=== PATIENT | female | born 1975 | race Caucasian/White ===

== ENCOUNTER 2019-01-16 21:06 | Emergency (ER) | payer OTHER ==
--- NOTE | 2019-01-16 21:36 | Emergency Department Record ---
History of Present Illness - General Chief complaint: GI Bleed Stated complaint: BLOODY CLOTS IN STOOL/BRIGHT RED Time Seen by Provider: 01/16/19 21:20 Source: Patient Mode of Arrival: Ambulatory Limitations: No limitations - History of Present Illness Initial comments: pt started having diarrhea last night and then started passing blood clots enough to turn the water red and now has straight blood passing. she has never had anything like this before. she has no pain but occasional cramping. she has never had a colonoscopy. she is scheduled to go to [place] in 2 days complaint: Gross hematochezia Onset/Timin -: Days(s) Radiation: Other Quality: Cramping Consistency: Intermittent Improves with: None Worsens with: None Context: Foreign travel Associated Symptoms: Diarrhea Treatments Prior to Arrival: None - Related Data Allergies Allergy/AdvReac Type Severity Reaction Status Date / Time meloxicam [From Mobic] Allergy HIVES Verified 01/16/19 21:16 sulfamethoxazole Allergy HIVES Verified 01/16/19 21:16 [From Bactrim] trimethoprim [From Bactrim] Allergy HIVES Verified 01/16/19 21:16 Travel Screening - Travel/Exposure Within Last 30 Days Have you traveled within the last 30 days?: Yes Location Detail:: [facility], [place] and [place] - Travel/Exposure Within Last Year Have you traveled outside the [place] in the last year?: Yes Location Detail:: [facility], [place] - Additonal Travel Details Have you been exposed to anyone with a communicable illness?: No - Travel Symptoms Symptom Screening: Diarrhea Review of Systems Reviewed: No additional complaints except as noted below Constitutional: Reports: As per HPI. Denies: Chills, Fever, Malaise, Night sweats, Weakness, Weight change Eyes: Reports: As per HPI. Denies: Eye discharge, Eye pain, Photophobia, Vision change ENT: Reports: As per HPI. Denies: Congestion, Dental pain, Ear pain, Epistaxis, Hearing loss, Throat pain Respiratory: Reports: As per HPI. Denies: Cough, Dyspnea, Hemoptysis, Stridor, Wheezes Cardiovascular: Reports: As per HPI. Denies: Arrhythmia, Chest pain, Dyspnea on exertion, Edema, Murmurs, Orthopnea, Palpitations, Paroxysmal nocturnal dyspnea, Rheumatic Fever, Syncope Endocrine: Reports: As per HPI. Denies: Fatigue, Heat or cold intolerance, Polydipsia, Polyuria Gastrointestinal: Reports: As per HPI, Diarrhea, Hematochezia. Denies: Abdominal pain, Constipation, Hematemesis, Melena, Nausea, Vomiting Genitourinary: Reports: As per HPI. Denies: Abnormal menses, Discharge, Dyspareunia, Dysuria, Frequency, Hematuria, Incontinence, Retention, Urgency Musculoskeletal: Reports: As per HPI. Denies: Arthralgia, Back pain, Gout, Joint swelling, Myalgia, Neck pain Skin: Reports: As per HPI. Denies: Bruising, Change in color, Change in hair/nails, Lesions, Pruritus, Rash Neurological: Reports: As per HPI. Denies: Abnormal gait, Confusion, Headache, Numbness, Paresthesias, Seizure, Tingling, Tremors, Vertigo, Weakness Psychiatric: Reports: As per HPI. Denies: Anxiety, Auditory hallucinations, Depression, Homicidal thoughts, Suicidal thoughts, Visual hallucinations Hematological/Lymphatic: Reports: As per HPI. Denies: Anemia, Blood Clots, Easy bleeding, Easy bruising, Swollen glands Past Medical History - SOCIAL HISTORY Smoking Status: Never smoker Alcohol Use: Rare Drug Use: None - RESPIRATORY Hx Respiratory Disorders: No - CARDIOVASCULAR Hx Cardio Disorders: No - NEURO Hx Neuro Disorders: No - GI Hx GI Disorders: No - Hx Genitourinary Disorders: Yes Hx Kidney Stones: Yes - ENDOCRINE Hx Endocrine Disorders: No - MUSCULOSKELETAL Hx Musculoskeletal Disorders: No - PSYCH Hx Psych Problems: No - HEMATOLOGY/ONCOLOGY Hx Hematology/Oncology Disorders: No Family Medical History Any Significant Family History?: No Physical Exam - General General Appearance: Alert, Oriented x3, Cooperative, Mild distress - Head Head exam: Normal inspection - Eye Eye exam: Normal appearance, PERRL, EOMI Pupils: Normal accommodation - ENT ENT exam: Normal exam, Mucous membranes moist, Normal external ear exam, Normal orophraynx Ear exam: Normal external inspection. negative: External canal tenderness Nasal Exam: Normal inspection. negative: Discharge, Sinus tenderness Mouth exam: Normal external inspection, Tongue normal Teeth exam: Normal inspection. negative: Dental caries Throat exam: Normal inspection. negative: Tonsillar erythema, Tonsillar exudate - Neck Neck exam: Normal inspection, Full ROM. negative: Tenderness - Respiratory Respiratory exam: Normal lung sounds bilaterally. negative: Respiratory distress - Cardiovascular Cardiovascular Exam: Regular rate, Normal rhythm, Normal heart sounds - GI/Abdominal GI/Abdominal exam: Soft, Normal bowel sounds. negative: Tenderness - Rectal Rectal exam: Bloody stool (solid blood per rectum) - exam: Deferred - Extremities Extremities exam: Normal inspection, Full ROM, Normal capillary refill. negative: Tenderness - Back Back exam: Reports: Normal inspection, Full ROM. Denies: Muscle spasm, Rash noted, Tenderness - Neurological Neurological exam: Alert, CN II-XII intact, Normal gait, Oriented X3 - Psychiatric Psychiatric exam: Normal affect, Normal mood - Skin Skin exam: Dry, Intact, Normal color, Warm Course Vital Signs 01/16/19 21:14 Temperature 98.5 F Pulse Rate [ 81 Pulse Ox Probe] Respiratory 20 Rate Blood Pressure 133/98 [Left Arm] Pulse Ox 97 - Reevaluation(s) Reevaluation #1: 01/16/19 23:27 ct shows mass on kidney, fluid collection in pelvis, stones Reevaluation #2: 01/16/19 23:28 pt still actively bleeding Medical Decision Making - Lab Data Result diagrams: 01/16/19 22:17 01/16/19 22:17 Disposition Disposition: Transfer Clinical Impression: GI bleed Qualifiers: GI bleed type/associated pathology: unspecified gastrointestinal hemorrhage type Qualified Code(s): K92.2 - Gastrointestinal hemorrhage, unspecified Disposition: Acute Care Hospital Transfer Transfer To: [facility] Reason For Transfer: needs gi doctor Accepting Physician: dr lima Time Discussed w/Accepting Physician: 00:00 Forms: Patient Portal Access Quality - Quality Measures Quality Measures: N/A - Blood Pressure Screening Does Patient Have Any of the Following: No Blood Pressure Classification: Pre-Hypertensive BP Reading Systolic Measurement: 123 Diastolic Measurement: 81 Screening for High Blood Pressure: < Pre-Hypertensive BP, F/U Documented > [G8950] Pre-Hypertensive Follow-up Interventions: Follow-up with rescreen every year.
[2019-01-16] MEDS ORDERED: 0.9 % SODIUM CHLORIDE 1,000 ML BAG IV ONE (21:47)
[2019-01-16 22:20] LABS: BASO % 0.4 % (0-6); EOS % 1.6 % (0-6); HEMATOCRIT 38.3 % (35.0-47.0); HEMOGLOBIN 13.2 gm/dl (11.6-16.0); LYMPH % 37.4 % (16-45); MEAN CELL VOLUME 91.4 fl (81-97); MEAN CORPUSCULAR HEMOGLOBIN 31.5 pg (27-33); MEAN CORPUSCULAR HGB CONC 34.5 g/dl (32-36); MEAN PLATELET VOLUME 9.8 fl (7.4-10.4); MONO % 6.6 % (0-9); PLATELET COUNT 219 K/uL (130-400); RED BLOOD COUNT 4.19 M/uL (3.80-5.40); RED CELL DISTRIBUTION WIDTH 11.4 % (11.5-14.5)
[2019-01-16 22:34] LABS: BLOOD UREA NITROGEN 12 mg/dL (6-20); CREATININE 0.6 mg/dL (0.5-0.9); EST GLOMERULAR FILTRATION RATE > 60 mL/min; TOTAL PROTEIN 6.6 g/dL (6.6-8.7)
[2019-01-16 22:36] LABS: GLUCOSE,RANDOM 94 mg/dL (74-109)
[2019-01-16 22:39] LABS: ALB/GLOB RATIO 1.5 (1.1-1.8); ALKALINE PHOSPHATASE 70 U/L (35-104); ALT/SGPT 20 U/L (<33); AST/SGOT 17 U/L (10.0-35.0)
--- NOTE | 2019-01-18 07:49 | CT SCAN REPORT ---
EXAM: CT SCAN OF THE ABDOMEN AND PELVIS HISTORY: PATIENT HAS DIARRHEA WITH BLOOD IN STOOL. TECHNIQUE: Serial axial CT scan of the abdomen and pelvis was performed at 3.75 mm intervals from the dome of the diaphragm down to the pubic symphysis without the use of intravenous or oral contrast. Comparison: CT scan of the abdomen and pelvis dated 02/14/15 is provided. FINDINGS: The lung windows of the lung bases demonstrate no CT evidence of a focal infiltrate or pleural effusion. The visualized heart size and contour is within normal limits. The liver, spleen, pancreas, adrenal glands, and gallbladder are unremarkable. The bilateral kidneys demonstrated no CT evidence of hydronephrosis or hydroureter. Nonobstructive 1.5 mm calculus is noted within the inferior pole of the right kidney. There is nonobstructive 3.4 mm calculus within the mid pole of the left kidney. Within the anterior mid pole of the right kidney, there is a 2.3 cm fat containing lesion with fat stranding. This is identified having an exophytic appearance. This finding is unchanged with respect to the prior CT scan and likely represents an angiomyolipoma. The contour and caliber of the noncontrasted abdominal aorta is within normal limits. There is no CT evidence of retroperitoneal, pelvic or inguinal lymphadenopathy. The bowel gas pattern is nonspecific and nonobstructive. Numerous colonic diverticula are noted without CT evidence of diverticulitis. The appendix is clearly visualized and there is no CT evidence of appendicitis. There is no CT evidence of free intraperitoneal air. The urinary bladder is unremarkable. The uterus is not visualized. Fluid is noted within the posterior cul-de-sac. Several follicles are identified within both ovaries. This finding may be the result of hemorrhagic ovarian cyst. If there is further clinical concern then ultrasound examination of the pelvis can be obtained for further evaluation. Bone windows demonstrate no CT evidence of a fracture or dislocation of the visualized osseous structures. IMPRESSION: 1. FLUID IS IDENTIFIED WITHIN THE POSTERIOR CUL-DE-SAC WHICH MAY BE THE RESULT OF HEMORRHAGIC OVARIAN CYST. IF THERE IS FURTHER CLINICAL CONCERN THEN ULTRASOUND EXAMINATION OF THE PELVIS CAN BE OBTAINED FOR FURTHER EVALUATION. 2. FAT CONTAINING EXOPHYTIC MASS WITHIN THE ANTERIOR MID POLE OF THE RIGHT KIDNEY IS STABLE WITH RESPECT TO THE PRIOR CT SCAN AND LIKELY REPRESENTS AN ANGIOMYOLIPOMA. JOB NUMBER: [id number] [facility]
== END 2019-01-17 00:14 | disposition short-term general hospital (02) ==
LOC: ER 21:06
DX: K92.2 Gastrointestinal hemorrhage, unspecified (principal); N28.89 Other specified disorders of kidney and ureter
CPT/HCPCS: 74176; 80053; 85025; 99284; 99285

== ENCOUNTER 2019-04-05 09:50 | Emergency (ER) | payer OTHER ==
[2019-04-05] MEDS ORDERED: 0.9 % SODIUM CHLORIDE 1,000 ML BAG IV ONE ×3 (10:20→11:57)
[2019-04-05] MEDS ORDERED: ACETAMINOPHEN 1,000 MG/100 ML BTL IVPB ONE (10:20)
[2019-04-05] MEDS ORDERED: KETOROLAC 30 MG/ML VIAL IVP ONE (10:22)
[2019-04-05] MEDS ORDERED: ONDANSETRON HCL IV 4 MG/2 ML VIAL IVP ONE ×2 (10:22→13:50)
[2019-04-05 10:32] LABS: URINE APPEARANCE SL CLOUDY; URINE BILIRUBIN SMALL (NEGATIVE); URINE BLOOD MODERATE (NEGATIVE); URINE COLOR YELLOW; URINE GLUCOSE (UA) NEGATIVE (NEGATIVE); URINE LEUKOCYTE ESTERASE MODERATE (NEGATIVE); URINE NITRITE NEGATIVE (NEGATIVE)
[2019-04-05] MEDS ORDERED: HYDROMORPHONE HCL 2 MG/ML VIAL IVP ONE ×2 (10:39→11:40)
[2019-04-05 10:42] LABS: URINE KETONE 80 mg/dL (NEGATIVE)
[2019-04-05 10:43] LABS: ABSOLUTE NEUTROPHIL COUNT 10.54; HEMATOCRIT 41.4 % (35.0-47.0); HEMOGLOBIN 13.9 gm/dl (11.6-16.0); MEAN CELL VOLUME 91.8 fl (81-97); MEAN CORPUSCULAR HEMOGLOBIN 30.8 pg (27-33); MEAN CORPUSCULAR HGB CONC 33.6 g/dl (32-36); MEAN PLATELET VOLUME 10.2 fl (7.4-10.4); PLATELET COUNT 268 K/uL (130-400); RED BLOOD COUNT 4.51 M/uL (3.80-5.40); RED CELL DISTRIBUTION WIDTH 11.9 % (11.5-14.5); WHITE BLOOD COUNT W/O DIFF 12.5 K/uL (4.2-12.2)
[2019-04-05 10:44] LABS: BLOOD UREA NITROGEN 14 mg/dL (6-20); CREATININE 0.7 mg/dL (0.5-0.9); EST GLOMERULAR FILTRATION RATE > 60 mL/min
[2019-04-05 10:47] LABS: GLUCOSE,RANDOM 135 mg/dL (74-109)
--- NOTE | 2019-04-05 10:50 | Emergency Department Record ---
History of Present Illness - General Chief complaint: Flank Pain Stated complaint: RIGHT KIDNET STONE Time Seen by Provider: 04/05/19 10:09 Source: Patient Mode of Arrival: Ambulatory Limitations: No limitations - History of Present Illness Initial comments: The patient is here due to a 2-3 hour hx of sharp stabbing R flank and RLQ pain. She has had some nausea and vomiting with the pain. The patient has a hx of kidney stones in the past and this feels like another. She also has had a week of dysuria and felt that she may have a UTI coming on. MD Complaint: Other Onset/Timin -: Hour(s) Severity scale (1-10): 6 Consistency: Constant Improves with: None Worsens with: None Patient : No - Related Data Home Medications Medication Instructions Recorded Confirmed Last Taken Ketorolac Tromethamine 1 tab PO Q8H 04/05/19 04/05/19 04/05/19 Previous Rx's Medication Instructions Recorded Cephalexin [Keflex] 500 mg PO TID #21 cap 04/05/19 Ondansetron [Zofran Odt] 4 mg SL .Q4-6H PRN #12 tab.rapdis 04/05/19 Allergies Allergy/AdvReac Type Severity Reaction Status Date / Time meloxicam [From Mobic] Allergy HIVES Verified 01/16/19 21:16 sulfamethoxazole Allergy HIVES Verified 01/16/19 21:16 [From Bactrim] trimethoprim [From Bactrim] Allergy HIVES Verified 01/16/19 21:16 Travel Screening - Travel/Exposure Within Last 30 Days Have you traveled within the last 30 days?: Yes Location Detail:: [place] - Travel/Exposure Within Last Year Have you traveled outside the [place] in the last year?: Yes Location Detail:: [place]/ [place]. - Additonal Travel Details Have you been exposed to anyone with a communicable illness?: No - Travel Symptoms Symptom Screening: Vomiting Review of Systems Constitutional: Denies: Chills, Fever Eyes: Denies: Eye discharge ENT: Denies: Congestion Respiratory: Denies: Cough Cardiovascular: Denies: Arrhythmia Endocrine: Denies: Fatigue Gastrointestinal: Reports: Abdominal pain, Nausea, Vomiting. Denies: Diarrhea Genitourinary: Reports: Dysuria Musculoskeletal: Denies: Arthralgia Neurological: Denies: Abnormal gait Past Medical History - SOCIAL HISTORY Smoking Status: Never smoker Alcohol Use: Rare Drug Use: None - RESPIRATORY Hx Respiratory Disorders: No - CARDIOVASCULAR Hx Cardio Disorders: No - NEURO Hx Neuro Disorders: No - GI Hx GI Disorders: No - Hx Genitourinary Disorders: Yes Hx Kidney Stones: Yes - ENDOCRINE Hx Endocrine Disorders: No - MUSCULOSKELETAL Hx Musculoskeletal Disorders: No - PSYCH Hx Psych Problems: No - HEMATOLOGY/ONCOLOGY Hx Hematology/Oncology Disorders: No Family Medical History Any Significant Family History?: No Physical Exam - General General Appearance: Alert, Oriented x3, Cooperative, Mild distress - Head Head exam: Atraumatic, Normocephalic - Eye Eye exam: Normal appearance - ENT Throat exam: Normal inspection. negative: Tonsillar erythema, Tonsillar exudate - Neck Neck exam: Normal inspection, Full ROM. negative: Tenderness - Respiratory Respiratory exam: Normal lung sounds bilaterally. negative: Respiratory distress - Cardiovascular Cardiovascular Exam: Regular rate, Normal rhythm, Normal heart sounds - GI/Abdominal GI/Abdominal exam: Soft, Diminished bowel sounds, Tenderness (There is significant RLQ tenderness.). negative: Normal bowel sounds, Rebound, Rigid - Extremities Extremities exam: Normal inspection, Full ROM, Normal capillary refill. negative: Tenderness - Neurological Neurological exam: Alert. negative: Motor sensory deficit Course Vital Signs 04/05/19 09:52 Pulse Rate 69 Respiratory 20 Rate Blood Pressure 127/83 Pulse Ox 100 - Reevaluation(s) Reevaluation #1: The patient is doing better at this time but is still in pain. She denies any new symptoms. 04/05/19 11:00 Reevaluation #2: The pain is waxing and waning and the patient is quite nauseated. Due to the extent of the pain I do feel it is most appropriate to admit the patient here for a short stay for pain control and fluids. 04/05/19 12:15 Reevaluation #3: I did discuss the case with Dr. Valdivia and he did agree to accept the patient for a short stay admission. I also did discuss the case with Dr. Sheppard ([facility] [place] and he also agrees with the plan and can see the patient in consultation if needed. The patient's pain presently did resolve so I do think she may have passed the stone. We will monitor her here for the next hour and if her pain does not return we will discharge with close F/U. 11/04/19 13:00 Reevaluation #4: The patient is doing a lot better at this time. Her pain is still gone and she did urinate and did pass a stone. Due to the resolution of the pain I do feel she will be able to go home with an oral Abx for a UTI. 04/05/19 13:57 Medical Decision Making - Data Complexity MDM Data: Labs Ordered and/or Reviewed, X-Ray Ordered and/or Reviewed - Lab Data Result diagrams: 04/05/19 10:21 04/05/19 10:21 Lab Results 04/05/19 Range/Units 10:21 Urine Color Yellow Urine Appearance Sl cloudy Urine pH 6.0 (5.0-8.0) Ur Specific [place] 1.025 (1.002-1.030) Urine Protein 30 mg/dl H (NEGATIVE) Urine Glucose (UA) Negative (NEGATIVE) Urine Ketones 80 mg/dl H (NEGATIVE) Urine Blood Moderate (NEGATIVE) Urine Nitrite Negative (NEGATIVE) Urine Bilirubin Small H (NEGATIVE) Urine Urobilinogen 1.0 (0.20 - 1.00) E.U./dL Ur Leukocyte Esterase Moderate H (NEGATIVE) - Radiology Data Radiology results: Report reviewed (CT: 2-3 mm stone R UVJ with hydro.) Disposition Disposition: Discharge Clinical Impression: Ureteral calculus, right Disposition: Home, Self-Care Condition: (2) Stable Instructions: Urinary Tract Infection in Women (ED), Ureteral Stones (ED) Additional Instructions: Please drink plenty of fluids and use the Zofran for nausea. Please take the Keflex as directed and return to the ER for any fever, vomiting, or return of the pain. Prescriptions: Cephalexin [Keflex] 500 mg PO TID #21 cap Ondansetron [Zofran Odt] 4 mg SL .Q4-6H PRN #12 tab.rapdis PRN Reason: Nausea Forms: Patient Portal Access Time of Disposition: 14:23 Quality - Quality Measures Quality Measures: N/A - Blood Pressure Screening View Details: Yes Does Patient Have Any of the Following: No Blood Pressure Classification: Pre-Hypertensive BP Reading Systolic Measurement: 127 Diastolic Measurement: 83 Screening for High Blood Pressure: < Pre-Hypertensive BP, F/U Documented > [G8950] Pre-Hypertensive Follow-up Interventions: Referral to alternative/primary care provider.
[2019-04-05 10:59] LABS: URINE WBC 36 - 50 (0-2/hpf)
[2019-04-05 11:00] LABS: URINE BACTERIA 3+; URINE EPITHELIAL CELLS 21 - 35 (FEW)
[2019-04-05 11:23] LABS: PLATELET ESTIMATE NORMAL (NORMAL)
--- NOTE | 2019-04-05 11:23 | CT SCAN REPORT ---
EXAMINATION: CT Abdomen and Pelvis without IV Contrast EXAM DATE: 04/05/2019 11:08 AM TECHNIQUE: Standard protocol CT imaging of the abdomen and pelvis was performed without intravenous c ontrast. INDICATION: Right flank pain with history of stones. COMPARISON: CT images from 01/16/2019 FINDINGS: CT abdomen: Mild right hydronephrosis and hydroureter caused by a 2-3 mm stone at the ureterovesical junction, seen on series 2, axial images 167-170. No other urinary tract calculus. No left hydronephr osis or hydroureter. Duplicated collecting system redemonstrated on the left. Stable size and appearance of the mostly exophytic fatty lesion projecting anteriorly from the right kidney. Normal heart size. Very mild atelectasis in the lung bases. CT pelvis: Very small volume of free fluid in the dependent pelvis. No abnormal mass. Normal-appearin g appendix. Uncomplicated diverticulosis is seen throughout the colon. No focal bowel abnormality. A very small umbilical hernia contains only fat, stable. No acute bony abnormality. IMPRESSION: 1. Right hydronephrosis and hydroureter caused by a small 2-3 mm stone at the ureterovesical junction . 2. No other urinary tract calculus. 3. Normal-appearing appendix. 4. Very small volume of free fluid in the dependent pelvis. Dictated by: Gustavo Young MD on 04/05/2019 11:13 AM. .
[2019-04-05 11:40] LABS: URINE APPEARANCE CLEAR; URINE BILIRUBIN NEGATIVE (NEGATIVE); URINE BLOOD SMALL (NEGATIVE); URINE COLOR YELLOW; URINE GLUCOSE (UA) NEGATIVE (NEGATIVE); URINE KETONE 40 mg/dL (NEGATIVE); URINE LEUKOCYTE ESTERASE NEGATIVE (NEGATIVE); URINE NITRITE NEGATIVE (NEGATIVE); URINE PROTEIN NEGATIVE (NEGATIVE); URINE UROBILINOGEN 0.2 E.U./dL (0.20 - 1.00)
[2019-04-05 11:54] LABS: URINE BACTERIA FEW; URINE RBC 0 - 2 (NONE SEEN)
[2019-04-05] MEDS ORDERED: CEFTRIAXONE 1GM/50ML BAG 1 GM/50 ML BAG IVPB ONE (12:14)
[2019-04-05] MEDS ORDERED: TAMSULOSIN HCL 0.4 MG CAP.ER.24H PO ONE (12:30)
== END 2019-04-05 14:47 | disposition home or self-care (01) ==
LOC: ER 09:50
DX: N13.2 Hydronephrosis with renal and ureteral calculous obstruction (principal); R11.2 Nausea with vomiting, unspecified; Z87.442 Personal history of urinary calculi; R30.0 Dysuria
CPT/HCPCS: 74176; 80048; 81001; 85027; 96365; 96366; 96375; 96376; 99284; J0696; J1885; J2405; J7030

== ENCOUNTER 2019-04-08 13:50 | Observation (INO) | payer OTHER ==
[2019-04-08] MEDS ORDERED: 0.9 % SODIUM CHLORIDE 1,000 ML BAG IV ONE (14:05)
[2019-04-08] MEDS ORDERED: ACETAMINOPHEN 1,000 MG/100 ML BTL IVPB ONE (14:10)
--- NOTE | 2019-04-08 14:18 | Emergency Department Record ---
History of Present Illness - General Chief Complaint: Fever Stated Complaint: FEVER Time Seen by Provider: 04/08/19 14:01 Source: Patient Mode of Arrival: Ambulatory Limitations: No limitations - History of Present Illness Initial Comments: The patient is here due to not feeling well for 3 days. She was here in this ER 3 days ago due to the acute onset of R groin pain and did have a 2-3 mm ureter stone at the R UVJ along with a mild UTI. The stone did pass and she was discharged on Keflex after receiving a dose of Rocephin IV in the ED. Since she left she has been having intermittent fevers, weakness, chills, and vague mild R sided flank pain. The pain is nothing like her kidney stone pain. The patient's urine culture did grow out Proteus Mirabilis which is sensitive to Cephalosporins. MD Complaint: Fever, Malaise, Weakness Onset/Timin -: Days(s) Associated Symptoms: Denies other symptoms - Related Data Previous Rx's Medication Instructions Recorded Cephalexin [Keflex] 500 mg PO TID #21 cap 04/05/19 Ondansetron [Zofran Odt] 4 mg SL .Q4-6H PRN #12 tab.rapdis 04/05/19 Allergies Allergy/AdvReac Type Severity Reaction Status Date / Time meloxicam [From Mobic] Allergy HIVES Verified 04/08/19 13:55 sulfamethoxazole Allergy HIVES Verified 04/08/19 13:55 [From Bactrim] trimethoprim [From Bactrim] Allergy HIVES Verified 04/08/19 13:55 Travel Screening - Travel/Exposure Within Last 30 Days Have you traveled within the last 30 days?: No - Travel/Exposure Within Last Year Have you traveled outside the [place] in the last year?: No - Additonal Travel Details Have you been exposed to anyone with a communicable illness?: No - Travel Symptoms Symptom Screening: None Review of Systems Constitutional: Reports: Chills, Fever, Malaise Eyes: Denies: Eye discharge ENT: Denies: Congestion Respiratory: Denies: Cough Cardiovascular: Denies: Arrhythmia, Chest pain Endocrine: Reports: Fatigue Gastrointestinal: Reports: Abdominal pain. Denies: Diarrhea, Nausea, Vomiting Genitourinary: Reports: Dysuria Musculoskeletal: Denies: Arthralgia, Back pain Skin: Denies: Bruising Past Medical History - SOCIAL HISTORY Smoking Status: Never smoker Alcohol Use: Occasional Drug Use: None - RESPIRATORY Hx Respiratory Disorders: No - CARDIOVASCULAR Hx Cardio Disorders: No - NEURO Hx Neuro Disorders: No - GI Hx GI Disorders: No - Hx Genitourinary Disorders: Yes Hx Kidney Stones: Yes - ENDOCRINE Hx Endocrine Disorders: No - MUSCULOSKELETAL Hx Musculoskeletal Disorders: No - PSYCH Hx Psych Problems: No - HEMATOLOGY/ONCOLOGY Hx Hematology/Oncology Disorders: No Family Medical History Any Significant Family History?: No Physical Exam - General General Appearance: Alert, Oriented x3, Cooperative, No acute distress - Head Head exam: Atraumatic, Normocephalic, Normal inspection - Eye Eye exam: Normal appearance, PERRL - ENT Throat exam: Normal inspection. negative: Tonsillar erythema, Tonsillar exudate - Neck Neck exam: Normal inspection, Full ROM. negative: Tenderness - Respiratory Respiratory exam: Normal lung sounds bilaterally. negative: Respiratory distress - Cardiovascular Cardiovascular Exam: Regular rate, Normal rhythm, Normal heart sounds - GI/Abdominal GI/Abdominal exam: Soft, Normal bowel sounds. negative: Guarding, Organomegaly, Pulsatile mass, Rebound, Rigid, Tenderness - Extremities Extremities exam: Normal inspection, Full ROM, Normal capillary refill. negative: Tenderness - Back Back exam: Denies: CVA tenderness (R), CVA tenderness (L) - Neurological Neurological exam: Alert. negative: Motor sensory deficit - Psychiatric Psychiatric exam: negative: Anxious - Skin Skin exam: negative: Rash Course Vital Signs 04/08/19 13:56 Temperature 99.5 F Pulse Rate 100 H Respiratory 20 Rate Blood Pressure 123/84 Pulse Ox 98 - Reevaluation(s) Reevaluation #1: The patient is doing better and her temp is improved to 98.2 orally. I did discuss the findings with the patient and do recommend a short stay admission due to the recurrent fever, chills, and body aches with elevated blood levels of the CRP and Procalcitonin. I did discuss the case with Shalini ([employer]) and she does accept the admission for Dr. Valdivia. 04/08/19 15:50 Medical Decision Making - Data Complexity MDM Data: Labs Ordered and/or Reviewed, X-Ray Ordered and/or Reviewed - Lab Data Result diagrams: 04/08/19 14:10 04/08/19 14:10 - Radiology Data Radiology results: Report reviewed (Renal US: Neg for acute changes.) Disposition Disposition: Admit Clinical Impression: Pyelonephritis Disposition: Still a Patient at [facility] Decision to Admit: Admit from ER Decision to Admit Date: 04/08/19 Decision to Admit Time: 16:15 Accepting Physician: Skip Time Discussed w/Accepting Physician: 16:15 Condition: (2) Stable Forms: Patient Portal Access Time of Disposition: 16:15 Quality - Quality Measures Quality Measures: N/A - Blood Pressure Screening View Details: Yes Does Patient Have Any of the Following: No Blood Pressure Classification: Pre-Hypertensive BP Reading Systolic Measurement: 123 Diastolic Measurement: 84 Screening for High Blood Pressure: < Pre-Hypertensive BP, F/U Documented > [G8950] Pre-Hypertensive Follow-up Interventions: Referral to alternative/primary care provider.
[2019-04-08 14:30] LABS: ABSOLUTE NEUTROPHIL COUNT 5.53; BASO % 0.1 % (0-6); EOS % 0.9 % (0-6); GRAN % 72.5 % (47-80); HEMATOCRIT 39.5 % (35.0-47.0); LYMPH % 20.6 % (16-45); MEAN CELL VOLUME 92.1 fl (81-97); MEAN CORPUSCULAR HEMOGLOBIN 30.3 pg (27-33); MEAN CORPUSCULAR HGB CONC 32.9 g/dl (32-36); MONO % 5.9 % (0-9); PLATELET COUNT 160 K/uL (130-400); RED BLOOD COUNT 4.29 M/uL (3.80-5.40); URINE APPEARANCE CLEAR; URINE BILIRUBIN NEGATIVE (NEGATIVE); URINE BLOOD MODERATE (NEGATIVE); URINE COLOR YELLOW; URINE GLUCOSE (UA) NEGATIVE (NEGATIVE); URINE KETONE NEGATIVE (NEGATIVE); URINE LEUKOCYTE ESTERASE NEGATIVE (NEGATIVE); URINE NITRITE NEGATIVE (NEGATIVE); URINE PROTEIN NEGATIVE (NEGATIVE); URINE UROBILINOGEN 0.2 E.U./dL (0.20 - 1.00); WHITE BLOOD COUNT W/O DIFF 7.6 K/uL (4.2-12.2)
[2019-04-08 14:38] LABS: URINE BACTERIA NONE SEEN; URINE EPITHELIAL CELLS NONE SEEN (FEW); URINE WBC NONE SEEN (0-2/hpf)
[2019-04-08 15:01] LABS: BLOOD UREA NITROGEN 8 mg/dL (6-20); CREATININE 0.6 mg/dL (0.5-0.9); EST GLOMERULAR FILTRATION RATE > 60 mL/min
[2019-04-08 15:02] LABS: TOTAL PROTEIN 7.2 g/dL (6.6-8.7)
[2019-04-08 15:04] LABS: GLUCOSE,RANDOM 108 mg/dL (74-109)
[2019-04-08 15:06] LABS: ALT/SGPT 101 U/L (<33); AST/SGOT 57 U/L (10.0-35.0)
[2019-04-08 15:07] LABS: ALB/GLOB RATIO 1.2 (1.1-1.8); ALBUMIN 3.9 g/dL (4.0-5.0); ALKALINE PHOSPHATASE 247 U/L (35-104); C-REACTIVE PROTEIN 11.18 mg/dL (<0.5)
[2019-04-08] MEDS ORDERED: CIPROFLOXACIN LACTATE/D5W 400 MG/200 ML BAG IVPB ONE (15:13)
[2019-04-08] MEDS ORDERED: POTASSIUM CHLORIDE 20 MEQ TABLET PO ONE (15:14)
--- NOTE | 2019-04-08 15:33 | ULTRASOUND REPORT ---
EXAMINATION: Kidney and Bladder Ultrasound EXAM DATE: 04/08/2019 2:58 PM TECHNIQUE: Ultrasound of the kidneys and bladder. INDICATION: F flank pain with passed kidney stone 04/05. COMPARISON: December 2018 CT scan. FINDINGS: Right Kidney: The right kidney measures 12.4 x 5.9 x 5 cm(length x AP x width) in dimension. The ech ogenicity of the kidney is normal. No hydronephrosis is present. The right kidney contains a 1.6 cm maximum dimension uniformly hyperechoic mass, likely reflecting an angiomyolipoma. Left Kidney: The left kidney measures 12.6 x 4.9 x 6 cm(length x AP x width) in dimension. The echoge nicity of the kidney is normal. No hydronephrosis is present. No cysts or masses are present. Bladder: Normal. Bilateral ureteral jets identified. ADDITIONAL FINDINGS: None. IMPRESSION: 1. 1.6 cm likely angiomyolipoma within the right kidney. 2. Otherwise unremarkable renal ultrasound. No hydronephrosis. Dictated by: Van Lua MD on 04/08/2019 3:30 PM. .
[2019-04-08] MEDS ORDERED: 0.9 % SODIUM CHLORIDE 1000ML 1,000 ML IV ONE (16:56)
[2019-04-08] MEDS: CEFTRIAXONE 1GM/50ML BAG 1 GM/50 ML BAG IVPB SCH (17:07)
[2019-04-08] MEDS ORDERED: SUMATRIPTAN 6 MG/0.5 ML VIAL SQ PRN (17:15)
[2019-04-08] MEDS ORDERED: ONDANSETRON HCL IV 4 MG/2 ML VIAL IVP PRN (19:14)
[2019-04-08] MEDS: ACETAMINOPHEN 1,000 MG/100 ML BTL IVPB SCH (20:59)
[2019-04-08] MEDS: POTASSIUM CHLORIDE 20 MEQ TABLET PO SCH (21:19)
[2019-04-09] MEDS: ACETAMINOPHEN 1,000 MG/100 ML BTL IVPB SCH ×2 (02:16→07:39)
[2019-04-09] MEDS: CEFTRIAXONE 1GM/50ML BAG 1 GM/50 ML BAG IVPB SCH (05:44)
[2019-04-09 06:54] LABS: ABSOLUTE NEUTROPHIL COUNT 3.32; BASO % 0.3 % (0-6); EOS % 1.4 % (0-6); GRAN % 53.4 % (47-80); HEMATOCRIT 37.7 % (35.0-47.0); HEMOGLOBIN 12.2 gm/dl (11.6-16.0); LYMPH % 37.5 % (16-45); MEAN CELL VOLUME 92.4 fl (81-97); MEAN CORPUSCULAR HEMOGLOBIN 29.9 pg (27-33); MEAN CORPUSCULAR HGB CONC 32.4 g/dl (32-36); MEAN PLATELET VOLUME 10.1 fl (7.4-10.4); MONO % 7.4 % (0-9); PLATELET COUNT 163 K/uL (130-400); RED BLOOD COUNT 4.08 M/uL (3.80-5.40); WHITE BLOOD COUNT W/O DIFF 6.2 K/uL (4.2-12.2)
[2019-04-09 07:24] LABS: ALBUMIN 3.4 g/dL (4.0-5.0); ALKALINE PHOSPHATASE 229 U/L (35-104); ALT/SGPT 70 U/L (<33); AST/SGOT 35 U/L (10.0-35.0); BLOOD UREA NITROGEN 7 mg/dL (6-20); C-REACTIVE PROTEIN 6.02 mg/dL (<0.5); CREATININE 0.5 mg/dL (0.5-0.9); EST GLOMERULAR FILTRATION RATE > 60 mL/min; GLUCOSE,RANDOM 106 mg/dL (74-109); TOTAL PROTEIN 6.3 g/dL (6.6-8.7)
[2019-04-09] MEDS: MODAFINIL 100 MG PO SCH ×2 (07:24→10:30)
[2019-04-09 07:53] LABS: BILIRUBIN,DIRECT < 0.2 mg/dL (0-0.3)
--- NOTE | 2019-04-09 08:13 | History & Physical ---
History of Present Illness - Date of Service Date of Service for History & Physical: 04/09/19 - History of Present Illness Admitting Diagnosis: 1. Acute R Pyelonephritis. History of Present Illness: The patient is here due to not feeling well for 3 days. She was here in this ER 3 days ago due to the acute onset of R groin pain and did have a 2-3 mm ureter stone at the R UVJ along with a mild UTI. The stone did pass and she was discharged on Keflex after receiving a dose of Rocephin IV in the ED. Since she left she has been having intermittent fevers, weakness, chills, and vague mild R sided flank pain. The pain is nothing like her kidney stone pain. The patient's urine culture did grow out Proteus Mirabilis which is sensitive to Cephalosporins. Past medical history of occasional smoker, kidney stones. While in the ED Tmax 99.5. CBC unremarkable. Potassium 2.9. AST 57, ALT 101, Alk Phos 247. CRP 11.18, Procalcitonin 3.74. U/A unremarkable. Renal ultrasound negative. CT abdomen/pelvis reviewed fro 04/05/19- right hydronephrosis with 2- 3mm stone at ureterovesicular junction. Admitted for suspect subclinical pyelonephritis, IV antibiotics, antiemetics, IV hydration. 04/09/19 0930- Resting in bed comfortably, does report she is having a migraine that is of typical headache pattern. Is not wanting to take Imitrex at this time as it makes her drowsy and she needs to drive home. Otherwise has tolerated PO intake, no further nausea, no vomiting. Has remained afebrile. Right flank pain has significantly improved. Travel Screening - Travel/Exposure Within Last 30 Days Have you traveled within the last 30 days?: Yes Location Detail:: [facility] - Travel/Exposure Within Last Year Have you traveled outside the [place] in the last year?: Yes Location Detail:: [place], [place] - Additonal Travel Details Have you been exposed to anyone with a communicable illness?: No - Travel Symptoms Symptom Screening: None Review of Systems Constitutional: Reports: Chills, Fever, Malaise Eyes: Denies: Eye discharge ENT: Denies: Congestion Respiratory: Denies: Cough Cardiovascular: Denies: Arrhythmia, Chest pain Endocrine: Reports: Fatigue Gastrointestinal: Reports: Abdominal pain. Denies: Diarrhea, Nausea, Vomiting Genitourinary: Reports: Dysuria Musculoskeletal: Denies: Arthralgia, Back pain Skin: Denies: Bruising Past Medical History - SOCIAL HISTORY Smoking Status: Never smoker Alcohol Use: None Drug Use: None - RESPIRATORY Hx Respiratory Disorders: No - CARDIOVASCULAR Hx Cardio Disorders: No - NEURO Hx Neuro Disorders: No - GI Hx GI Disorders: No - Hx Genitourinary Disorders: Yes Hx Kidney Stones: Yes - ENDOCRINE Hx Endocrine Disorders: No - MUSCULOSKELETAL Hx Musculoskeletal Disorders: No - PSYCH Hx Psych Problems: No - HEMATOLOGY/ONCOLOGY Hx Hematology/Oncology Disorders: No Family Medical History Any Significant Family History?: No H&P Meds/Allergies - Allergies Allergies: Allergies Allergy/AdvReac Type Severity Reaction Status Date / Time meloxicam [From Mobic] Allergy HIVES Verified 04/08/19 13:55 sulfamethoxazole Allergy HIVES Verified 04/08/19 13:55 [From Bactrim] trimethoprim [From Bactrim] Allergy HIVES Verified 04/08/19 13:55 - Home Medications Previous Rx's Medication Instructions Recorded Ondansetron [Zofran Odt] 4 mg SL .Q4-6H PRN #12 tab.rapdis 04/05/19 Ciprofloxacin HCl [Cipro] 500 mg PO Q12HR 10 Days #20 tab 04/09/19 Potassium Chloride [Klor-Con] 20 meq PO BID 7 Days #14 tablet.sa 04/09/19 - Active Medications Active Medications: Current Medications CEFTRIAXONE 1GM/50ML BAG (Ceftriaxone 1 Gm-D5w Bag) 1 gm in 50 mls @ 100 mls/hr IVPB Q12H VICKY Last Infusion: 04/09/19 06:29 Dose: Infused Documented by: Acetaminophen (Ofirmev) 1,000 mg in 100 mls @ 400 mls/hr IVPB Q6H VICKY Last Admin: 04/09/19 07:39 Dose: 200 mls/hr Documented by: Ondansetron HCl (Zofran) 4 mg IVP Q6H PRN PRN Reason: NAUSEA Last Admin: 04/08/19 19:17 Dose: 4 mg Documented by: Patient Own Med: (Modafinil 100 Mg) 1 each PO DAILY VICKY Last Admin: 04/09/19 07:24 Dose: 1 each Documented by: Potassium Chloride (Klor-Con) 20 meq PO BID VICKY Last Admin: 04/08/19 21:19 Dose: 20 meq Documented by: Sumatriptan Succinate (Imitrex) 6 mg SQ Q1H PRN PRN Reason: FOR MIGRAINE Physical Exam - Vital Signs Vital Signs: Vital Signs - Last 24 Hrs Temp Pulse Pulse Pulse Resp BP BP 04/09/19 07:47 97.9 F 68 14 04/09/19 02:55 97.5 F L 66 16 113/61 04/08/19 18:56 98.8 F 81 16 127/80 04/08/19 16:56 99.4 F 88 16 139/55 04/08/19 16:37 98.2 F 78 18 111/77 04/08/19 13:56 99.5 F 100 H 20 123/84 BP Pulse Ox 04/09/19 07:47 121/77 100 04/09/19 02:55 99 04/08/19 18:56 100 04/08/19 16:56 99 04/08/19 16:37 100 04/08/19 13:56 98 - General General Appearance: Alert, Oriented x3, Cooperative, No acute distress Limitations: No limitations - Head Head exam: Atraumatic, Normocephalic, Normal inspection - Eye Eye exam: Normal appearance, PERRL - ENT Throat exam: Normal inspection. negative: Tonsillar erythema, Tonsillar exudate - Neck Neck exam: Normal inspection, Full ROM. negative: Tenderness - Respiratory Respiratory exam: Normal lung sounds bilaterally. negative: Respiratory distress - Cardiovascular Cardiovascular Exam: Regular rate, Normal rhythm, Normal heart sounds - GI/Abdominal GI/Abdominal exam: Soft, Normal bowel sounds, Other (right flank tenderness, no CVA tenderness, negative [employer]). negative: Guarding, Organomegaly, Pulsatile mass, Rebound, Rigid, Tenderness - Extremities Extremities exam: Normal inspection, Full ROM, Normal capillary refill. negative: Tenderness - Back Back exam: Denies: CVA tenderness (R), CVA tenderness (L) - Neurological Neurological exam: Alert. negative: Motor sensory deficit - Psychiatric Psychiatric exam: negative: Anxious - Skin Skin exam: negative: Rash Results - Labs Result Diagrams: 04/09/19 06:32 04/09/19 06:32 Labs Last 24 Hours: Laboratory Results - last 24 hr 1104/08/19 04/08/19 14:10 14:10 14:10 WBC 7.6 RBC 4.29 Hgb 13.0 Hct 39.5 MCV 92.1 MCH 30.3 MCHC 32.9 RDW 12.0 Plt Count 160 MPV 11.0 H Gran % 72.5 Lymphocytes % 20.6 Monocytes % 5.9 Eosinophils % 0.9 Basophils % 0.1 Absolute Neutrophils 5.53 Sodium 137 Potassium 2.9 L* Chloride 100 Carbon Dioxide 25.0 Anion Gap 12.0 BUN 8 Creatinine 0.6 Estimated GFR > 60 Random Glucose 108 Calcium 9.0 Total Bilirubin 0.60 Direct Bilirubin AST 57 H ALT 101 H Alkaline Phosphatase 247 H C-Reactive Protein 11.18 H Total Protein 7.2 Albumin 3.9 L Globulin 3.3 Albumin/Globulin Ratio 1.2 Procalcitonin 3.74 Urine Color Yellow Urine Appearance Clear Urine pH 8.5 Ur Specific [place] 1.015 Urine Protein Negative Urine Glucose (UA) Negative Urine Ketones Negative Urine Blood Moderate Urine Nitrite Negative Urine Bilirubin Negative Urine Urobilinogen 0.2 Ur Leukocyte Esterase Negative Urine RBC 10 - 15 Urine WBC None seen Ur Epithelial Cells None seen Urine Bacteria None seen 04/09/19 04/09/19 04/09/19 06:32 06:32 06:32 WBC 6.2 RBC 4.08 Hgb 12.2 Hct 37.7 MCV 92.4 MCH 29.9 MCHC 32.4 RDW 12.0 Plt Count 163 MPV 10.1 Gran % 53.4 Lymphocytes % 37.5 Monocytes % 7.4 Eosinophils % 1.4 Basophils % 0.3 Absolute Neutrophils 3.32 Sodium 139 Potassium 3.4 Chloride 104 Carbon Dioxide 23.0 Anion Gap 12.0 BUN 7 Creatinine 0.5 Estimated GFR > 60 Random Glucose 106 Calcium 8.6 Total Bilirubin 0.40 Direct Bilirubin < 0.2 AST 35 ALT 70 H Alkaline Phosphatase 229 H C-Reactive Protein 6.02 H Total Protein 6.3 L Albumin 3.4 L Globulin Albumin/Globulin Ratio Procalcitonin 2.31 Urine Color Urine Appearance Urine pH Ur Specific [place] Urine Protein Urine Glucose (UA) Urine Ketones Urine Blood Urine Nitrite Urine Bilirubin Urine Urobilinogen Ur Leukocyte Esterase Urine RBC Urine WBC Ur Epithelial Cells Urine Bacteria - Imaging and Cardiology US - abdomen Status: Report reviewed VTE H&P Assessment - Risk for VTE Risk for VTE: Yes Risk Level: Moderate Risk Assessment Date: 04/08/19 Risk Assessment Time: 18:00 VTE Orders Placed or Will Be Placed: Yes Plan - Detailed Diagnosis and Plan (1) Pyelonephritis Status: Acute Base Code: N12 - TUBULO-INTERSTITIAL NEPHRITIS, NOT SPCF ACUTE OR CHRONIC Comment: 04/09/19 - BC x 2 drawn and pending - Afebrile - Rocephin 1gm BID, antiemetics - Renal U/S negative in ED - Abdomen/pelvis CT 04/05/18- right hydronephrosis with 2-3mm stone in UVJ that passed while in ED on that date (2) Hypokalemia Status: Acute Base Code: E87.6 - HYPOKALEMIA Comment: 04/09/19 - Potassium 2.9-->3.4 - Klor-con 20mEq BId (3) DVT prophylaxis Status: Acute Base Code: Z29.9 - ENCOUNTER FOR PROPHYLACTIC MEASURES, UNSPECIFIED Comment: 04/09/19 - Nursing to encourage frequent ambulation (4) Full code status Status: Acute Base Code: Z78.9 - OTHER SPECIFIED HEALTH STATUS Comment: 04/09/19
[2019-04-09] MEDS: POTASSIUM CHLORIDE 20 MEQ TABLET PO SCH (09:45)
[2019-04-09] MEDS ORDERED: IBUPROFEN 400 MG TABLET PO ONE (10:23)
--- NOTE | 2019-04-09 10:43 | Discharge Summary ---
Providers Discharge Summary Date: 04/09/19 Date of admission: 04/08/19 16:39 Attending physician: TY KRISHNAN Primary care physician: Connor Munoz D.O. Physical Exam - Vital Signs Vital Signs: Vital Signs - Last 24 Hrs Temp Pulse Pulse Pulse Resp BP BP 04/09/19 07:47 97.9 F 68 14 04/09/19 02:55 97.5 F L 66 16 113/61 04/08/19 18:56 98.8 F 81 16 127/80 04/08/19 16:56 99.4 F 88 16 139/55 04/08/19 16:37 98.2 F 78 18 111/77 04/08/19 13:56 99.5 F 100 H 20 123/84 BP Pulse Ox 04/09/19 07:47 121/77 100 04/09/19 02:55 99 04/08/19 18:56 100 04/08/19 16:56 99 04/08/19 16:37 100 04/08/19 13:56 98 - General General Appearance: Alert, Oriented x3, Cooperative, No acute distress Limitations: No limitations - Head Head exam: Atraumatic, Normocephalic, Normal inspection - Eye Eye exam: Normal appearance, PERRL - ENT Throat exam: Normal inspection. negative: Tonsillar erythema, Tonsillar exudate - Neck Neck exam: Normal inspection, Full ROM. negative: Tenderness - Respiratory Respiratory exam: Normal lung sounds bilaterally. negative: Respiratory distress - Cardiovascular Cardiovascular Exam: Regular rate, Normal rhythm, Normal heart sounds - GI/Abdominal GI/Abdominal exam: Soft, Normal bowel sounds. negative: Guarding, Organomegaly, Pulsatile mass, Rebound, Rigid, Tenderness - Extremities Extremities exam: Normal inspection, Full ROM, Normal capillary refill. negative: Tenderness - Back Back exam: Denies: CVA tenderness (R), CVA tenderness (L) - Neurological Neurological exam: Alert. negative: Motor sensory deficit - Psychiatric Psychiatric exam: negative: Anxious - Skin Skin exam: negative: Rash Hospitalization - Hospitalization Admission Diagnosis: 1. Acute R Pyelonephritis. - Problem List/Discharge Diagnosis (1) Pyelonephritis Status: Acute Base Code: N12 - TUBULO-INTERSTITIAL NEPHRITIS, NOT SPCF ACUTE OR CHRONIC Comment: 04/09/19 - BC x 2 drawn and pending - Afebrile - Rocephin 1gm BID, antiemetics - Renal U/S negative in ED - Abdomen/pelvis CT 04/05/18- right hydronephrosis with 2-3mm stone in UVJ that passed while in ED on that date (2) Hypokalemia Status: Acute Base Code: E87.6 - HYPOKALEMIA Comment: 04/09/19 - Potassium 2.9-->3.4 - Klor-con 20mEq BId (3) DVT prophylaxis Status: Acute Base Code: Z29.9 - ENCOUNTER FOR PROPHYLACTIC MEASURES, UNSPECIFIED Comment: 04/09/19 - Nursing to encourage frequent ambulation (4) Full code status Status: Acute Base Code: Z78.9 - OTHER SPECIFIED HEALTH STATUS Comment: 04/09/19 - Hospitalization Course Disposition: Home, Self-Care Hospital Course: The patient is here due to not feeling well for 3 days. She was here in this ER 3 days ago due to the acute onset of R groin pain and did have a 2-3 mm ureter stone at the R UVJ along with a mild UTI. The stone did pass and she was discharged on Keflex after receiving a dose of Rocephin IV in the ED. Since she left she has been having intermittent fevers, weakness, chills, and vague mild R sided flank pain. The pain is nothing like her kidney stone pain. The patient's urine culture did grow out Proteus Mirabilis which is sensitive to Cephalosporins. Past medical history of occasional smoker, kidney stones. While in the ED Tmax 99.5. CBC unremarkable. Potassium 2.9. AST 57, ALT 101, Alk Phos 247. CRP 11.18, Procalcitonin 3.74. U/A unremarkable. Renal ultrasound negative. CT abdomen/pelvis reviewed fro 04/05/19- right hydronephrosis with 2- 3mm stone at ureterovesicular junction. Admitted for suspect subclinical pyelonephritis, IV antibiotics, antiemetics, IV hydration. 04/09/19 0930- Resting in bed comfortably, does report she is having a migraine that is of typical headache pattern. Is not wanting to take Imitrex at this time as it makes her drowsy and she needs to drive home. Otherwise has tolerated PO intake, no further nausea, no vomiting. Has remained afebrile. Right flank pain has significantly improved. Incidental finding of hypokalemia improved after oral dosing of potassium. Will send home with oral potassium supplementation, recheck labs in 3 days. Urine culture from 04/05/19 reviewed, Cipro is susceptible, will send home on 10 day regimen. Procedures: Imaging and X-Rays 04/08/19 14:05 RENAL [US] Stat Abnormal Labs: Abnormal Lab Results 04/08/19 04/08/19 04/09/19 Range/Units 14:10 14:10 06:32 MPV 11.0 H (7.4-10.4) fl Potassium 2.9 L* (3.4-4.5) mmol/L AST 57 H (10.0-35.0) U/L ALT 101 H 70 H (<33) U/L Alkaline Phosphatase 247 H 229 H (35-104) U/L C-Reactive Protein 11.18 H 6.02 H (<0.5) mg/dL Total Protein 6.3 L (6.6-8.7) g/dL Albumin 3.9 L 3.4 L (4.0-5.0) g/dL Condition at Discharge: (2) Stable Discharge Medications - Discharge Medications Prescriptions: Ciprofloxacin HCl [Cipro] 500 mg PO Q12HR 10 Days #20 tab Potassium Chloride [Klor-Con] 20 meq PO BID 7 Days #14 tablet. Home Medications: Ambulatory Orders Modafinil [Provigil] 100 mg PO ASDIR tab 08/16/16 [Last Taken 04/08/19] Sumatriptan [Imitrex] 20 mg NS ASDIR spray 08/16/16 [Last Taken 04/08/19] Ketorolac Tromethamine 1 tab PO Q8H 04/05/19 [Last Taken 04/08/19] Ondansetron [Zofran Odt] 4 mg SL .Q4-6H PRN #12 tab.rapdis 04/05/19 [Last Taken 04/08/19] Ciprofloxacin HCl [Cipro] 500 mg PO Q12HR 10 Days #20 tab 04/09/19 [Last Taken Unknown] Potassium Chloride [Klor-Con] 20 meq PO BID 7 Days #14 tablet.sa 04/09/19 [Last Taken Unknown] Discharge Plan - Discharge Instructions Activity at Discharge: Increase Activity as Tolerated Diet at Discharge: Advance to Usual Diet Instructions: Urinary Tract Infection in Women (DC) Additional Instructions: You were started on a short supply of potassium supplement Liver enzymes elevated during your stay, recheck blood work before you leave on vacation Quality Measures - Quality Measures Quality Measures: Documentation of Current Medications in Medical Record, Screening for High Blood Pressure and F/U Documented - Current Medications Quality Measure: Measure #130: Documentation of Current Medications Documentation of Current Medications: <Current Medications Documented/Reviewed> [G8427] - Blood Pressure Screening Quality Measure: Screening for High Blood Pressure and Follow-Up Documented Does Patient Have Any of the Following: No Blood Pressure Classification: Normal BP Reading Systolic Measurement: 111 Diastolic Measurement: 77 Screening for High Blood Pressure: < Normal BP, F/U Not Required > [G8783] - Elder Abuse Suspicion Index EASI Reference Information: Ying MARTINEZ, Александр C, Joss D, Deandra Castellon.Development and validation of a tool to assist physicians identification of elder abuse: The Elder Abuse Suspicion Index (EASI ). Journal of Elder Abuse and Neglect, 2008; 20 (3): 276-300.
== END 2019-04-09 11:11 | disposition home or self-care (01) ==
LOC: ER 13:50 → MEDSURG 16:39
PROVIDERS: ADMIT Internal Medicine; ATTEND Internal Medicine
DX: N10 Acute pyelonephritis (principal); N12 Tubulo-interstitial nephritis, not specified as acute or chronic; R53.1 Weakness; R53.81 Other malaise; M79.10 Myalgia, unspecified site; Z87.442 Personal history of urinary calculi; E87.6 Hypokalemia
CPT/HCPCS: 76775; 80048; 80053; 80076; 81001; 84145; 85025; 86140; 96365; 96366; 99220; 99285; J0696; J2405; J7030